=== PATIENT | female | born 1990 | race Caucasian/White ===

== ENCOUNTER 2018-09-19 10:33 | Day surgery (SDC) | payer OTHER ==
--- NOTE | 2018-09-19 10:38 | ANESTHESIA ---
Pre-Anesthesia VS, & Labs - Diagnosis desires sterilization - Procedure Laparoscopic salpingectomy Vital Signs: Last Vital Signs Temp 36.4 C L 09/19/18 10:47 Pulse 57 L 09/19/18 10:47 Resp 16 09/19/18 10:47 BP 127/78 09/19/18 10:47 Pulse Ox 96 09/19/18 10:47 Height 5 ft 4 in Weight (kg) 70.76 kg - NPO >8 hours Last Fluid Intake: H20 sips @0800 - Is Patient ?: Waiver signed (waiver NOT signed, awaiting results at time of pre-anethesia evaluation) - Lab Results Lab results reviewed: No Home Medications and Allergies Home Medications: Ambulatory Orders Bupropion HCl [Bupropion Xl] 150 mg PO 09/09/18 Bupropion HCl [Bupropion Xl] 300 mg PO 09/09/18 Cholecalciferol (Vitamin D3) [Vitamin D3] 1,000 unit PO 09/09/18 Clonidine HCl [Catapres] 0.2 mg PO 09/09/18 Fluoxetine HCl [Prozac] 20 mg PO 09/09/18 Ibuprofen [Motrin] 800 mg PO Q8H PRN 09/09/18 hydrOXYzine pamoate [Hydroxyzine Pamoate] 25 mg PO 09/09/18 Bupropion HCl [Bupropion Xl] 150 mg PO 09/09/18 Bupropion HCl [Bupropion Xl] 300 mg PO 09/09/18 Cholecalciferol (Vitamin D3) [Vitamin D3] 1,000 unit PO 09/09/18 Clonidine HCl [Catapres] 0.2 mg PO 09/09/18 Fluoxetine HCl [Prozac] 20 mg PO 09/09/18 Ibuprofen [Motrin] 800 mg PO Q8H PRN 09/09/18 hydrOXYzine pamoate [Hydroxyzine Pamoate] 25 mg PO 09/09/18 Allergies/Adverse Reactions: Allergies Allergy/AdvReac Type Severity Reaction Status Date / Time No Known Drug Allergies Allergy Verified 09/09/18 09:38 Anes History & Medical History - Anesthetic History Anesthesia Complications: reports: No previous complications Family history of Anesthesia Complications: Denies Family history of Malignant Hyperthermia: Denies - Medical History Cardiovascular: reports: None Pulmonary: reports: None Gastrointestinal: reports: None Urinary: reports: None Musculoskeletal: reports: None Endocrine/Autoimmune: reports: None Skin: reports: None - Surgical History General:  Eyes Ears Nose Throat (EENT): Other (multiple neck surgeries for birthmark removal) Dermatologic: Other Exam General: Alert, Oriented x3, Cooperative Dental: WNL Mouth Openin Fingerbreadth Mallampati classification: II Thyromental Distance: 4-6 cm Respiratory: Lungs clear, Normal breath sounds Cardiovascular: Regular rate Neurological: Normal speech Mental/Cognitive Status: Alert/Oriented X3, Normal for patient Plan Anesthesia Type: General Consent for Procedure(s) Verified and Reviewed: No Code Status: Attempt Resuscitation ASA classification: 1-Healthy patient Is this case an emergency?: No
[2018-09-19] MEDS ORDERED: LACTATED RINGERS 1,000 ML IV ONE ×2 (10:58→14:26)
[2018-09-19 11:36] LABS: HCG UR QUAL NEGATIVE
[2018-09-19] MEDS ORDERED: LIDOCAINE 1%-EPI 1:100000 30 ML MDV ONE (12:01)
[2018-09-19] MEDS ORDERED: BUPIVACAINE 0.25% PF 30 ML VIAL ONE (12:35)
[2018-09-19] MEDS ORDERED: BUPIVACAINE 0.25% PF 30 ML VIAL SUBQ ONE ×2 (13:32)
[2018-09-19] MEDS ORDERED: ONDANSETRON 4 MG/2 ML VIAL IVP PRN (14:03)
[2018-09-19] MEDS ORDERED: HYDROcod/ACETAM 10 MG/325 MG TABLET PO PRN (14:03)
[2018-09-19] MEDS ORDERED: ONDANSETRON 4 MG/2 ML VIAL IVP ONE (14:06)
[2018-09-19] MEDS ORDERED: KETOROLAC 30 MG/ML VIAL IVP ONE (14:06)
[2018-09-19] MEDS ORDERED: ROCURONIUM 50 MG/5 ML VIAL IVP ONE (14:06)
[2018-09-19] MEDS ORDERED: fentaNYL 100 MCG/2 ML VIAL IVP ONE (14:06)
[2018-09-19] MEDS ORDERED: PROPOFOL 200 MG/20 ML VIAL IVP ONE (14:06)
[2018-09-19] MEDS ORDERED: MIDAZOLAM 2 MG/2 ML VIAL IVP ONE (14:06)
[2018-09-19] MEDS ORDERED: LIDOCAINE-MPF 2% 5 ML VIAL IM ONE (14:06)
[2018-09-19] MEDS ORDERED: GLYCOPYRROLATE 1 MG/5 ML VIAL IVP ONE (14:06)
--- NOTE | 2018-09-19 14:15 | OPERATIVE REPORT ---
Operative Report - General Procedure Date: 09/19/18 Planned Procedure: Laparoscopic bilateral salpingectomies Pre-Op Diagnosis: Desired sterilization Procedure Performed: Laparoscopic bilateral salpingectomies Post Op Diagnosis: COLBY - Procedure Note Primary Surgeon: Dr. Elaine Walters Secondary Surgeon: Dr. Domingo Davila Anesthesia Technique: General ET tube Pathology: Bilateral fallopian tubes IV Fluids (mL): 900 Estimated Blood Loss (mL): 7 Urine Output (mL): 180 Complications: None - Other Other Information/Narrative: Indications: The patient is a 28-year-old 0 here for laparoscopic bilateral salpingectomies for permanent sterilization. She is currently using a Mirena intrauterine device for control of menses and premenstrual dysphoric disorder. She notes some weight gain and is considering whether or not to continue the intrauterine device. However, she strongly desires sterilization in addition to the intrauterine device and desires surgery. 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 The consent was reviewed and signed prior to surgery. Findings: Exam under anesthesia noted the uterus was approximately 6 weeks in size and anteverted. There were no adnexal masses palpable. Operative findings were notable for a normal-appearing, nulligravid uterus with normal appearing fallopian tubes and ovaries. There was a small, approximately 0.5 cm, paratubal cyst noted on the left distal fallopian tube. There were no endometriosis lesions present. There were some scattered possible venous varicosities noted based only on slight dark pigmentation of the veins on the pelvic sidewalls. However the veins themselves did not appear overly engorged. The liver edge was visualized and appeared normal. There were no pelvic or intraperitoneal adhesions noted. Procedure: The patient was taken to the operating room, where general endotracheal anesthesia was administered without difficulty. She was then positioned in the low dorsal lithotomy position with her lower extremities in [place] stirrups. Vagina, perineum, and abdomen were then prepped and draped in a sterile fashion, and an in-an-out catheterization was performed. Procedure Time-Out was then performed. A sterile bivalve speculum was then inserted into the vagina. The IUD strings were visualized within the endocervix and measured approximately 1.5 cm in length. In order to avoid intrauterine displacement of the IUD, the decision was made to utilize just a tenaculum for uterine manipulation. This was placed at the posterior lip of the cervix. The speculum was then removed. Attention was then turned to the laparoscopy. 0.25% Marcaine was injected infraumbilically, then a 7-mm horizontal skin incision made. A Verrees needle was then inserted through the anterior layers of the abdominal wall with saline drop test suggesting intraperitoneal placement. Carbon dioxide gas insufflation was then performed with appropriate opening pressures noted. Once 2 L of gas was instilled, a 0-degree, 5 mm laparoscope was inserted into a 5 mm trocar and passed through the anterior layers of the abdominal wall using Optiview technique. The abdomen was visualized, then 2 additional ports placed at the right and left lower quadrants, first instilling local anesthetic, then placing 5 mm ports. The patient was placed into Trendelenberg and bowel swept out of the cul-de-sac. The right, distal fallopian tube was then grasped and pulled anteriorly and superiorly. The tubo-ovarian ligament was then crossclamped, cauterized, and cut using the PlasmaKinetic, then the mesosalpinx was crossclamped, cauterized, and cut, completely the right fallopian tube from the uterus at the cornual region. The right fallopian tube was then removed from the abdomen. T he left distal fallopian tube including the paratubal cyst was then grasped and pulled anteriorly and superiorly. The tubo-ovarian pedicle was then crossclamped, cauterized, and cut, the distal left fallopian tube from the left ovary. The mesosalpinx was then serially cauterized and cut until the cornual region was reached, then the cornual fallopian tube was crossclamped cauterized and cut. The surgical sites appeared hemostatic. The left fallopian tube was removed from the abdomen. At this point the laparoscopy was deemed complete, and all trochars were removed from the abdomen. The carbon dioxide gas was then allowed to escape. The incisions were then closed with 4-0 Monocryl in a subcuticular fashion followed by Dermabond skin adhesive. The tenaculum was then removed from the posterior lip of the cervix. The sterile bivalve speculum was then reinserted to ensure that the tenaculum sites were hemostatic. No bleeding was noted, and the speculum was then removed. At this point the procedure was deemed complete. The patient was then replaced supine, awakened, extubated, and transferred to the PACU in stable condition. There were no complications. Sponge, lap, and needle count were correct x 3.
[2018-09-19 15:12] VITALS: BP 124/90
== END 2018-09-19 10:34 | disposition home or self-care (01) ==
LOC: SDS 10:33
PROVIDERS: ATTEND Obstetrics & Gynecology
PROC: 0UT74ZZ Resection of Bilateral Fallopian Tubes, Percutaneous Endoscopic Approach (ICD-10-PCS; principal; 2018-09-19 11:45)
DX: Z30.2 Encounter for sterilization (principal); Z97.5 Presence of (intrauterine) contraceptive device; Z79.891 Long term (current) use of opiate analgesic; Z79.1 Long term (current) use of non-steroidal anti-inflammatories (NSAID); F43.20 Adjustment disorder, unspecified; F32.9 Major depressive disorder, single episode, unspecified; F32.81 Premenstrual dysphoric disorder
CPT/HCPCS: 58661; 81025; J7120

== ENCOUNTER 2021-07-20 17:48 | Emergency (ER) | payer OTHER ==
[2021-07-20 17:57] VITALS: BP 120/70
[2021-07-20] MEDS ORDERED: KETOROLAC 60 MG/2 ML VIAL IM STA (18:14)
[2021-07-20] MEDS ORDERED: HYDROcod/ACET 5/325 Prepack 4 PO STA (18:14)
--- NOTE | 2021-07-20 18:16 | ED Physician Documentation ---
PD HPI BACK PAIN - Stated complaint Stated Complaint: BACK PX - Chief complaint Chief Complaint: Back Pain - History obtained from History obtained from: Patient - Additional information Additional information: For the last 5 years or so she gets intermittent low back pain. It happens maybe twice a year. It is a bandlike pain across the low back that is worse with bending and twisting and exacerbated by lifting. There is no radiation to the legs. No weakness, numbness, tingling, saddle anesthesia, fevers, or incontinence. No history of IV drug use. She tried naproxen without relief. Review of Systems Constitutional: denies: Fever, Chills Cardiac: reports: Reviewed and negative Respiratory: reports: Reviewed and negative : denies: Now EGA Musculoskeletal: reports: Back pain. denies: Neck pain PD PAST MEDICAL HISTORY - Past Medical History Cardiovascular: None Respiratory: None Endocrine/Autoimmune: None GI: None : None HEENT: None Psych: Depression Musculoskeletal: None Derm: None - Past Surgical History General:  HEENT: Other (multiple neck surgeries for birthmark removal) Derm: Other - Present Medications Home Medications: Ambulatory Orders Medication Instructions Recorded Confirmed Bupropion HCl [Bupropion Xl] 300 mg PO 09/09/18 Cholecalciferol (Vitamin D3) 1,000 unit PO 09/09/18 [Vitamin D3] Fluoxetine HCl [Prozac] 20 mg PO 09/09/18 Ibuprofen [Motrin] 800 mg PO Q8H PRN 09/09/18 09/09/18 buPROPion HCL [Bupropion Xl] 150 mg PO 09/09/18 cloNIDine HCL [Catapres] 0.2 mg PO 09/09/18 hydrOXYzine pamoate [Hydroxyzine 25 mg PO 09/09/18 Pamoate] HYDROcod/ACETAM 5/325 [[place] 5/325] 1 - 2 tab PO Q6H PRN #15 tablet 07/20/21 - Allergies Allergies/Adverse Reactions: Allergies Allergy/AdvReac Type Severity Reaction Status Date / Time No Known Drug Allergies Allergy Verified 07/20/21 17:54 - Social History Does the pt have substance abuse?: No PD ED PE NORMAL - Vitals Vital signs reviewed: Yes - General General: Alert and oriented X 3, Other (Win[place] with motion, comfortable at rest) - Back Back: No spinal TTP - Extremities Extremities: Other (The patient has equal and normal Achilles and patellar reflexes bilaterally. Normal sensation in all areas of the legs. Patient denies saddle anesthesia. Normal strength in flexion-extension at the ankles, knees, and flexion of the hips.) - Neuro Neuro: Alert and oriented X 3, Normal speech Results - Vitals Vitals: Vital Signs - 24 hr 07/20/21 17:54 Temperature 36.5 C Heart Rate 58 L Respiratory 16 Rate Blood Pressure 120/70 O2 Saturation 99 Oxygen O2 Source Room air PD MEDICAL DECISION MAKING - ED course ED course: This patient has seemingly uncomplicated musculoskeletal back pain. The patient has no "red flags." Specifically denies IV drug use, fevers, incontinence, saddle anesthesia. Spinal epidural abscess was considered, given that the patient has no fever, is not diabetic, has no spinal tenderness, does not use IV drugs, and has no bilateral neurologic symptoms, the diagnosis of spinal epidural abscess is considered exceedingly unlikely. I am prescribing a short course of short-acting opioid pain medication for this patient. 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 I have discussed that the opioids are for short term therapy only, and will not be refilled from the ED. Departure - Departure Disposition: Home, Self Care Clinical Impression: Acute exacerbation of chronic low back pain Condition: Good Record reviewed to determine appropriate education?: Yes Instructions: ED Spasm Back No Trauma Prescriptions: HYDROcod/ACETAM 5/325 [[place] 5/325] 1 - 2 tab PO Q6H PRN #15 tablet PRN Reason: Pain Comments: Continue taking naproxen in addition to the medication I am giving you for pain. [place] return for new or worsening symptoms. Prescription sent electronically to [facility] in [place]. I am prescribing a short course of narcotic pain medication for you. These are potentially dangerous and addictive medications that should be used carefully. These medications may constipate you. Take an [id number] stool softener (docusate) twice daily with plenty of water while taking these medications. If you go 24 hours without a bowel movement, take [id number] miralax, per package instructions. Do not drink or drive while taking these medications. If you received narcotic or sedating medications while in the emergency department, do not drive for 24 hours. Store this medication in a safe, secure place and out of reach of children. It is a violation of federal law to give or sell this medication to another person or to use in a manner other than prescribed. The ED will not refill narcotic prescriptions, including prescriptions lost or stolen. To dispose of unwanted medications: 1. [facility] at [address] in [place] has a medication drop box. They accept prescription medications (in pill form) Wednesday through Wednesday 9:00 a.m. to 5:00 p.m. 2. The [facility] accepts prescription medications (in pill form only) for disposal year round. Call for more information. 3. Contact the [facility] for the next [facility] sponsored prescription drug collection event. , [phone], or [phone]; Note that many narcotic pain relievers also contain Tylenol/acetaminophen. Please ensure that your total dose of acetaminophen from all sources does not exceed 3 g (3000 mg) per day. Forms: Activity restrictions
== END 2021-07-20 18:32 | disposition home or self-care (01) ==
LOC: ED 17:48
DX: M54.50 Low back pain, unspecified (principal); G89.29 Other chronic pain
CPT/HCPCS: 99283

== ENCOUNTER 2022-08-09 17:29 | Emergency (ER) | payer OTHER ==
[2022-08-09 17:40] VITALS: BP 137/76
[2022-08-09] MEDS ORDERED: HYDROcod/ACET 5/325 Prepack 4 PO STA (17:57)
[2022-08-09] MEDS ORDERED: HYDROcod/ACETAM 5/325 MG TABLET PO STA ×2 (17:57→18:09)
[2022-08-09] MEDS ORDERED: KETOROLAC 60 MG/2 ML VIAL IM STA (17:57)
[2022-08-09] MEDS ORDERED: CYCLOBENZAPRINE 10 MG Prepack 2 PO PRN (17:58)
--- NOTE | 2022-08-09 17:59 | ED Physician Documentation ---
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 Over the last few days without specific trauma developed bilateral right greater than left low back pain which is much worse with position changes, bending, and twisting. She denies weakness, numbness, tingling, saddle anesthesia, fevers, or possibility of . She has been in PT for this. Review of Systems Constitutional: denies: Fever, Chills, Myalgias Throat: reports: Reviewed and negative Cardiac: reports: Reviewed and negative Respiratory: reports: Reviewed and negative PD PAST MEDICAL HISTORY - Past Medical History Cardiovascular: None Respiratory: None Endocrine/Autoimmune: None GI: None : None HEENT: None Psych: Depression Musculoskeletal: None Derm: None - Past Surgical History General:  HEENT: Other (multiple neck surgeries for birthmark removal) Derm: Other - Present Medications Home Medications: Ambulatory Orders Medication Instructions Recorded Confirmed Bupropion HCl [Bupropion Xl] 300 mg PO 09/09/18 Cholecalciferol (Vitamin D3) 1,000 unit PO 09/09/18 [Vitamin D3] Fluoxetine HCl [Prozac] 20 mg PO 09/09/18 Ibuprofen [Motrin] 800 mg PO Q8H PRN 09/09/18 09/09/18 buPROPion HCL [Bupropion Xl] 150 mg PO 09/09/18 cloNIDine HCL [Catapres] 0.2 mg PO 09/09/18 hydrOXYzine pamoate [Hydroxyzine 25 mg PO 09/09/18 Pamoate] HYDROcod/ACETAM 5/325 [[place] 5/325] 1 - 2 tab PO Q6H PRN #15 tablet 07/20/21 Cyclobenzaprine [Flexeril] 10 mg PO TID PRN #20 tablet 08/09/22 HYDROcod/ACETAM 5/325 [[place] 5/325] 1 - 2 tab PO Q6H PRN #15 tablet 08/09/22 Ibuprofen [Motrin] 600 mg PO Q6H PRN #30 tab 08/09/22 - Allergies Allergies/Adverse Reactions: Allergies Allergy/AdvReac Type Severity Reaction Status Date / Time No Known Drug Allergies Allergy Verified 08/09/22 17:40 - Social History Does the pt have substance abuse?: No PD ED PE NORMAL - Vitals Vital signs reviewed: Yes - General General: Alert and oriented X 3, No acute distress - Back Back: Other (Muscle tenderness and swelling of the right low back without midline spinal tenderness.) - Extremities Extremities: Other (The patient has equal and normal Achilles and patellar reflexes bilaterally. Normal sensation in all areas of the legs. Patient denies saddle anesthesia. Normal strength in flexion-extension at the ankles, knees, and flexion of the hips.) - Neuro Neuro: Alert and oriented X 3, Normal speech Results - Vitals Vitals: Vital Signs - 24 hr 08/09/22 17:37 Temperature 36.4 C L Heart Rate 56 L Respiratory 16 Rate Blood Pressure 137/76 H O2 Saturation 99 Oxygen O2 Source Room air PD MEDICAL DECISION MAKING - ED course ED course: This patient has seemingly uncomplicated musculoskeletal back pain. The patient has no "red flags." Specifically denies IV drug use, fevers, incontinence, saddle anesthesia. Spinal epidural abscess was considered, given that the patient has no fever, is not diabetic, has no spinal tenderness, does not use IV drugs, and has no bilateral neurologic symptoms, the diagnosis of spinal epidural abscess is considered exceedingly unlikely. Departure - Departure Disposition: 01 Home, Self Care Clinical Impression: Back spasm Condition: Good Record reviewed to determine appropriate education?: Yes Instructions: ED Spasm Back No Trauma Prescriptions: Cyclobenzaprine [Flexeril] 10 mg PO TID PRN #20 tablet PRN Reason: Spasms Ibuprofen [Motrin] 600 mg PO Q6H PRN #30 tab PRN Reason: Pain HYDROcod/ACETAM 5/325 [[place] 5/325] 1 - 2 tab PO Q6H PRN #15 tablet PRN Reason: Pain Comments: I sent your prescriptions electronically [place] [facility] [place] Call your doctor to arrange a follow-up appointment, make the next available appointment. In the interim, return anytime if worse or if new symptoms develop. I am prescribing a short course of narcotic pain medication for you. These are potentially dangerous and addictive medications that should be used carefully. These medications may constipate you. Take an sljh-cuy-tavlonk stool softener (docusate) twice daily with plenty of water while taking these medications. If you go 24 hours without a bowel movement, take [id number] miralax, per package instructions. Do not drink or drive while taking these medications. If you received narcotic or sedating medications while in the emergency department, do not drive for 24 hours. Store this medication in a safe, secure place and out of reach of children. It is a violation of federal law to give or sell this medication to another person or to use in a manner other than prescribed. The ED will not refill narcotic prescriptions, including prescriptions lost or stolen. To dispose of unwanted medications: 1. [facility] at [address] in [place] has a medication drop box. They accept prescription medications (in pill form) Wednesday through Wednesday 9:00 a.m. to 5:00 p.m. 2. The [facility] Police Department accepts prescription medications (in pill form only) for disposal year round. Call for more info rmation. 3. Contact the [facility] for the next [facility] sponsored prescription drug collection event. , [phone], or [phone]; Note that many narcotic pain relievers also contain Tylenol/acetaminophen. Please ensure that your total dose of acetaminophen from all sources does not exceed 3 g (3000 mg) per day.
== END 2022-08-09 18:27 | disposition home or self-care (01) ==
LOC: ED 17:29
DX: M62.830 Muscle spasm of back (principal)
CPT/HCPCS: 96372; 99283; A9270